=== PATIENT | male | born 1975 | race Hispanic/Latino ===

== ENCOUNTER 2022-05-01 07:16 | Emergency (ER) | payer SELFPAY ==
--- NOTE | ~2022-05-01 | XR_ITS ---
EXAMINATION: XR finger 3rd RT min 2V DATE: 05/01/2022 07:46 INDICATION: Right hand third digit injury. TECHNIQUE: 3 views of right hand third digit were obtained. COMPARISON: Right hand radiographs 07/08/2008 FINDINGS: There is a comminuted fracture of tuft of third distal phalanx with up to 1 mm displacement . 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 IMPRESSION: 1. Comminuted fracture of tuft of third distal phalanx. Reviewed, dictated and finalized at location A. REP
[2022-05-01 07:20] VITALS: BP 135/62; PULSE 61; RESP 16; TEMP 36.8; O2SAT 99
--- NOTE | 2022-05-01 07:22 | ED.UPPEXIN ---
HPI - Extremity Injury (Upper) General Chief Complaint: Extremity Injury, Upper Stated Complaint: finger injury Time Seen by Provider: 05/01/22 07:18 History of Present Illness HPI narrative: Patient states last night he had some metal fall on his right middle finger, due to swelling and was causing severe pain so he came in today. No numbness but some bleeding underneath the fingernail. Related Data Allergies Allergy/AdvReac Type Severity Reaction Status Date / Time No Known Allergies Allergy Mild Unverified 07/08/08 15:57 Review of Systems Review of Systems: M/S: Right middle finger pain. SKIN: Wound to finger NEURO: [No headache or focal numbness or weakness] Exam Narrative: EXAMINATION OF ORGAN SYSTEMS/BODY AREAS: Constitutional: Vital signs per nursing GENERAL: Appears somewhat uncomfortable/ in pain HEAD: Normal with no signs of head trauma. EYES: EOMI, conjunctiva normal ENT: Hearing grossly intact LUNGS: Nonlabored breathing. HEART: [Regular rate and rhythm] ABD: [Soft], no distension EXT: Normal range of motion, subungual hematoma and abrasion to tip of right middle finger SKIN: Described above NEURO: [Alert and oriented x 3. No gross focal sensory or strength deficits.] PSYCH: Normal affect Course Vital Signs Vital signs: Vital Signs Temperature 98.2 F 05/01/22 07:20 Pulse Rate 61 05/01/22 07:20 Respiratory Rate 16 05/01/22 07:20 Blood Pressure 135/62 05/01/22 07:20 Pulse Oximetry 99 05/01/22 07:20 Oxygen Delivery Room Air 05/01/22 07:20 Temperature 98.2 F 05/01/22 07:20 Pulse Rate 61 05/01/22 07:20 Respiratory Rate 16 05/01/22 07:20 Blood Pressure 135/62 05/01/22 07:20 Pulse Oximetry 99 05/01/22 07:20 Oxygen Delivery Room Air 05/01/22 07:20 Procedures Nail Trephination Nail Trephination #1: Nail Trephination Date: 05/01/22 Nail Trephination Time: 08:00 Location (finger): right and middle Sterile prep: betadine Method of drainage: nail cautery Procedure successful: Yes Patient tolerated procedure: well and no complications Nerve Block Nerve Block 1: Nerve block date: 02/07/23 Nerve block time: 07:45 Local Anesthetic: lidocaine 1% Amount of anesthesia used (mL): 2 Side: right Nerve Blocks: digital Procedure Successful: Yes Patient Tolerated Procedure: well and no complications MDM - Extremity Injury (Upper) MDM Narrative Medical decision making narrative: 46yoM p/w finger injury and pain, not resolved with tylenol at home; VSS and on exam has tenderness to distal tip of middle R finger though NVI with good cap refill, does have subungual hematoma and open abrasion/wound to lateral fingertip. Digital block performed with good success, nail trephinated with electrocautery with immediate relief in symptoms and amount of blood return, x-ray reviewed by myself and is significant for distal tuft fracture with minimal displacement, placed in splint, tdap updated. I did attempt to page Ortho for follow-up however he recommended I speak with our hand surgeon, Dr. Thomas is paged multiple times however no answer so I did call [facility] for hand surgery, discussed with Dr. Quintanilla who is agreeable to following up the patient as an outpatient in his clinic, did not feel antibiotics were necessary, agree with plan to splint. Patient stable for discharge at this time. Discharge Plan Discharge Clinical Impression: Open fracture of tuft of distal phalanx of finger, Subungual hematoma of finger of right hand Patient Disposition: Home, Self-Care Condition: Stable Instructions: Antibiotic Form, Subungual Hematoma (ED), Finger Fracture (ED) Additional Instructions: Call [phone] Judd Quintanilla at [facility] for your finger; come back to the ER if your symptoms worsen, any worsening pain or signs of infection. Follow-up/
[2022-05-01] MEDS: HYDROcodone/acetaminophen (*CRX) 5-325 MG TABLET 1 TAB PO (07:43)
[2022-05-01] MEDS: TETANUS,DIPHTHERIA,AC PERTUSSIS ADULT (0.5 ML) BOOSTRIX IM (07:44)
== END 2022-05-01 11:03 | disposition home or self-care (01) ==
PROVIDERS: Emergency Provider Emergency Medicine; PCP Physician Assistant
DX: S62.632B Displaced fracture of distal phalanx of right middle finger, initial encounter for open fracture (principal); S60.131A Contusion of right middle finger with damage to nail, initial encounter; Z23 Encounter for immunization; W20.8XXA Other cause of strike by thrown, projected or falling object, initial encounter
CPT/HCPCS: 11740; 29130; 73140; 90471; 90715; 99284; A9270